=== PATIENT | male | born 1945 | race Caucasian/White ===

== ENCOUNTER → 2019-01-28 | Outpatient (CLI) | payer MEDICARE, OTHER ==
[2019-01-28 15:16] LABS: PROTHROMBIN TIME 24.4 SECONDS (9.7-12.8)
== END ==
LOC: COL.LAB 14:13
DX: I48.0 Paroxysmal atrial fibrillation (principal); Z79.01 Long term (current) use of anticoagulants

== ENCOUNTER 2021-08-01 18:18 | Emergency (ER) | payer MEDICARE, OTHER ==
[~2021-08-01] VITALS: Ht 185.4 cm; Wt 122.7 kg
[2021-08-01 19:03] LABS: BASO % 0.6 % (0.0-2.0); EOS # 0.2 K/mm3 (0.0-0.7); EOS % 3.3 % (0.0-4.0); GRAN # 3.6 K/mm3 (1.4-6.5); GRAN % 68.6 % (42.2-75.2); HEMOGLOBIN 13.1 g/dl (13.5-18.0); LYMPH # 0.9 K/mm3 (1.2-3.4); LYMPH % 16.7 % (20.0-51.0); MEAN CELL VOLUME 83 fl (80.0-100.0); MEAN CORPUSCULAR HEMOGLOBIN 27 pg (27-31); MEAN CORPUSCULAR HGB CONC 33 g/dl (33.0-37.0); MEAN PLATELET VOLUME 9.6 fl (7.4-10.4); MONO # 0.6 K/mm3 (0.1-0.6); MONO % 10.6 % (1.7-9.3); PLATELET COUNT 134 K/mm3 (130-400); RED BLOOD COUNT 4.83 M/mm3 (4.20-5.60)
[2021-08-01] MEDS ORDERED: NORVASC2.5 MG PO (19:05)
[2021-08-01] MEDS ORDERED: ELIQUIS 5MG PO (19:05)
[2021-08-01] MEDS ORDERED: TENORMIN 2525 MG/TAB PO (19:06)
[2021-08-01] MEDS ORDERED: ASPIRIN 81M81 MG/TA2 PO (19:06)
[2021-08-01] MEDS ORDERED: PRESERVISION1 SGL PO (19:06)
[2021-08-01] MEDS ORDERED: EPA FISH OIL1 SGL PO (19:07)
[2021-08-01] MEDS ORDERED: HCTZ 25MG TAB25 MG PO (19:07)
[2021-08-01] MEDS ORDERED: GLUCOPHAGE500 MG/TAB PO (19:07)
[2021-08-01 19:29] LABS: ALBUMIN 3.8 gm/dL (3.4-4.8); BILIRUBIN,TOTAL 0.9 mg/dL (0.2-1.2); C-REACTIVE PROTEIN 0.52 mg/dL (0.00-0.50); CALCIUM 9.7 mg/dL (8.4-10.2); CREATININE, serum 0.87 mg/dL (0.72-1.25); POTASSIUM 3.8 mmol/L (3.5-4.5)
[2021-08-01 20:46] LABS: COLLECTION METHOD CLEAN CATCH
[2021-08-01 20:51] LABS: PH 7 (5-8); SQUAMOUS EPITHELIAL None Seen /hpf (0-10); URINE APPEARANCE Clear (CLEAR/HAZY); URINE BACTERIA None Seen /hpf (NONE SEEN); URINE BILIRUBIN Negative (NEGATIVE); URINE BLOOD Negative (NEGATIVE); URINE COLOR Yellow (YELLOW); URINE GLUCOSE Negative (NEGATIVE); URINE KETONE Negative (NEGATIVE); URINE LEUKOCYTE ESTERASE Negative (NEGATIVE); URINE NITRATE Negative (NEGATIVE); URINE PROTEIN(semi-quant) Negative (NEGATIVE); URINE RBC None Seen /hpf (0-2); URINE UROBILINOGEN Negative (NEGATIVE)
[2021-08-01 22:15] VITALS: TEMP 97.9
[2021-08-02 00:25] VITALS: BP 138/84; PULSE 84
== END 2021-08-02 00:48 | disposition short-term general hospital (02) ==
LOC: COL.ER 18:18
PROVIDERS: Nurse Practitioner
DX: K56.600 Partial intestinal obstruction, unspecified as to cause (principal); G89.18 Other acute postprocedural pain; R74.02 Elevation of levels of lactic acid dehydrogenase [LDH]; Z87.891 Personal history of nicotine dependence; Z91.040 Latex allergy status
CPT/HCPCS: J1170; J2405; J2543; J7120; Q9967

== ENCOUNTER → 2022-04-12 | Outpatient (CLI) | payer MEDICARE, OTHER ==
[~2022-04-12] MED LIST: ASPIRIN 81M81 MG/TA2 PO; ELIQUIS 5MG PO; EPA FISH OIL1 SGL PO; GLUCOPHAGE500 MG/TAB PO; HCTZ 25MG TAB25 MG PO; NORVASC2.5 MG PO; PRESERVISION1 SGL PO; TENORMIN 2525 MG/TAB PO
== END ==
LOC: COL.VAS 12:54
DX: I48.91 Unspecified atrial fibrillation (principal); I51.7 Cardiomegaly

== ENCOUNTER 2023-10-24 22:19 | Inpatient (IN) | payer MEDICARE, OTHER ==
[~2023-10-24] VITALS: Ht 185.4 cm; Wt 122.7 kg
[~2023-10-24 22:19] MED LIST changes: +ASPIRIN E.C. 8181 MG PO; +B-121000 MCG PO; +GLUCOPHAGE XR500 M1 PO; +LIPITOR 40MG TA40 MG PO; +NEURONTIN100 MG/CAP PO
[2023-10-24] MEDS ORDERED: NS 500 ML IV ONE (22:45)
[2023-10-24] MEDS ORDERED: Ondansetron 4 MG/2 ML VIAL IV ONE (22:45)
[2023-10-24] MEDS ORDERED: HYDROmorphone 0.5 MG/0.5 ML SYRINGE IV ONE (22:45)
[2023-10-24 22:54] LABS: BASO # 0.1 K/mm3 (0.0-0.2); BASO % 0.8 % (0.0-2.0); EOS # 0.2 K/mm3 (0.0-0.7); EOS % 2.3 % (0.0-4.0); GRAN # 5.9 K/mm3 (1.4-6.5); GRAN % 64.2 % (42.2-75.2); HEMOGLOBIN 13.4 g/dl (13.5-18.0); LYMPH # 2.3 K/mm3 (1.2-3.4); LYMPH % 24.8 % (20.0-51.0); MEAN CELL VOLUME 81 fl (80.0-100.0); MEAN CORPUSCULAR HEMOGLOBIN 26 pg (27-31); MEAN CORPUSCULAR HGB CONC 32 g/dl (33.0-37.0); MONO # 0.7 K/mm3 (0.1-0.6); MONO % 7.6 % (1.7-9.3); PLATELET COUNT 199 K/mm3 (130-400); RED BLOOD COUNT 5.19 M/mm3 (4.20-5.60); REDCELL DISTRIBUTION WIDTH-CV 15.9 % (11.5-14.5)
[2023-10-24 23:04] LABS: ACETONE,SERUM NEGATIVE
[2023-10-24 23:05] LABS: INR 1.1 (0.8-3.0); PROTHROMBIN TIME 11.4 SECONDS (9.7-12.8)
[2023-10-24 23:08] LABS: PARTIAL THROMBOPLASTIN TIME 29.6 SECONDS (26.0-37.0)
[2023-10-24 23:12] LABS: ALANINE AMINOTRANSFERASE 14 U/L (0-55); ALBUMIN 4.1 g/dL (3.4-4.8); ALKALINE PHOSPHATASE 71 U/L (40-150); ANION GAP 18 mmol/L (7-16); AST,SGOT 26 U/L (5-34); BLOOD UREA NITROGEN 20 mg/dL (8-26); CALCIUM 9.9 mg/dL (8.4-10.2); CHLORIDE 107 mEq/L (98-107); CREATININE, serum 1.05 mg/dL (0.72-1.25); GLUCOSE 168 mg/dL (70-99); LIPASE 26 U/L (8-78); POTASSIUM 3.4 mEq/L (3.5-4.5); SODIUM 144 mEq/L (136-145); TOTAL PROTEIN 7.5 g/dl (6.2-8.1)
[2023-10-24] MEDS ORDERED: LIPITOR 80MG80 MG PO (23:44)
[2023-10-24] MEDS ORDERED: NEURONTIN300 MG/CAP PO (23:44)
[2023-10-25] VITALS (14 sets, daily range): BP systolic 108–146; BP diastolic 59–92; PULSE 52–82; TEMP 97.4–98.1
[2023-10-25] MEDS ORDERED: JARDIANCE25 PO (00:15)
[2023-10-25] MEDS ORDERED: NS 1,000 ML IV SCH (00:45)
[2023-10-25] MEDS ORDERED: HYDROmorphone 0.5 MG/0.5 ML SYRINGE IV PRN (00:45)
[2023-10-25] MEDS ORDERED: Ondansetron 4 MG/2 ML VIAL IV PRN (00:45)
[2023-10-25] MEDS ORDERED: Metoprolol Tartrate 5 MG/5 ML VIAL IV SCH (00:45)
[2023-10-25] MEDS ORDERED: Dextrose (Glucose) 15 GM (4 x 3.75 GM) Chewable TABLET PACK PO PRN (01:15)
[2023-10-25] MEDS ORDERED: Glucagon 1 MG VIAL IM PRN (01:15)
[2023-10-25] MEDS ORDERED: Potassium Chloride 100 ML IV SCH ×2 (01:15→07:30)
[2023-10-25] MEDS ORDERED: *Potassium Replacement Protocol MC SCH (01:15)
[2023-10-25] MEDS ORDERED: Dextrose 50% Water 25 GM/50 ML SYRINGE IV PRN (01:15)
--- NOTE | 2023-10-25 01:36 | NUR ---
PATIENT ADMITTED TO ROOM 357 BROUGHT UP BY LUISA ED-RN. PATIENT VS ARE:BP 146/92, PULSE 71, 96% ON RA, 97.9 TEMP, 18RR. C/O 3/10 ABDOMINAL PAIN. AXO X3, NO EMESIS OR LOOSE STOOLS NOTED. CALL PLACED TO HOSPITALIST INQUIRING ABOUT TELE. NO TELE ORDERS PLACED. PATIENT ORIENTED TO ROOM.
[2023-10-25 03:20] LABS: COLLECTION METHOD CLEAN CATCH
[2023-10-25 03:47] LABS: URINE APPEARANCE CLEAR (CLEAR/HAZY); URINE BLOOD NEGATIVE (NEGATIVE); URINE COLOR YELLOW (YELLOW); URINE GLUCOSE 2+ (NEGATIVE); URINE KETONE 1+ (NEGATIVE); URINE NITRATE NEGATIVE (NEGATIVE); URINE PROTEIN(semi-quant) NEGATIVE (NEGATIVE); URINE UROBILINOGEN 0.2 E.U/dL (0.2-1.0)
--- NOTE | 2023-10-25 03:50 | NUR ---
PATIENT ADMITTED TO ROOM 307 BROUGHT UP BY ER-RN. VS ARE 115/65 BP, 91% RA, TEMP 99.8, HR 122, RR 18 AND AXO X4. NS STILL INFUSING IN RT AC- BOLUS. PATIENT ORIENTED TO ROOM. MEWS SCOR CURRENTLY 3. CHARGE NURSE NOTIFIED AND EVANGELIDIS -UROLOGIST DRY CELL TESTER- TO ADMINISTER 1000 MG TYLENOL PO AND CONTINUE VITAL SIGNS VIGILANCE GIVEN.
--- NOTE | 2023-10-25 04:07 | NUR ---
PATIENT NOT TOLERATING K+ IV REPLACEMENT. STATES, "IT RODRIGUEZ REAL BAD." WITH ASSISSTANCE OF [place]. DRIP RATE SLOWED TO 50ML/HR. SO FAR, PATIENT TOLERATING WELL. CALL PLACED TO HOSPITALIST.
[2023-10-25] MEDS ORDERED: Insulin Lispro (HumaLOG) SQ SCH (06:00)
[2023-10-25] MEDS ORDERED: Heparin/D5W 250 ML IV SCH (09:00)
[2023-10-25] MEDS ORDERED: Heparin 1,000 UNITS/0.2 ML Re-Bolus PRN IV (09:00)
[2023-10-25] MEDS ORDERED: Pantoprazole 40 MG in NS 10 ML IV SCH (09:00)
--- NOTE | 2023-10-25 10:09 | NUR ---
Pending court monitor to start Hep gtt.
--- NOTE | 2023-10-25 16:58 | NUR ---
floorworker lasting met with patient to discuss discharge planning. Patient lives near [place] by himself. Rena (daughter) P# [phone] and Ej (grandson) P# [phone] are listed as contacts. PCP is Dr. Ball, [facility] is [facility] [address] otherwise it is [facility]. No issues affording medications at this time. Medicare A and B and for Life. No DPOA-HC, marriage and family social worker provided a DPOA-HC to review in case patient wanted to complete during the hospital stay. DME is [facility] CPAP. Patient reports to be indpendent with ADLS. Patient reports to have a vehicle for transportation to appointments. Patient would like to return home at time of discharge. SW left a voicemail for Rena, patient's daughter, to discuss discharge plan. Discharge plan: Home
--- NOTE | 2023-10-25 18:23 | NUR ---
Hep gtt high 145.7, stopped 1 hr and to be reduced 200 units.
--- NOTE | 2023-10-25 23:33 | NUR ---
PATIENT RESTING IN BED WITH EYES CLOSED. EASILY ROUSED. DENIES PAIN. STATES HE HAS BEEN PASSING GAS AND WOULD LIKE TO ADVANCE HIS DIET PAST CLEAR LIQUIDS. CALL LIGHT WITHIN REACH. BED IS LOCKED AND IN LOW POSITION
[2023-10-26] VITALS (7 sets, daily range): BP systolic 100–134; BP diastolic 65–87; PULSE 54–67; TEMP 97.5–97.7
--- NOTE | 2023-10-26 02:18 | NUR ---
PATIENT'S PTT RESULT FROM 0130 CHECK IS 204.3, PER PROTOCOL THIS RN PLACED HEPARIN DRIP ON STANDBY AND WILL RECHECK AT 0415.
[2023-10-26 04:16] LABS: BASO % 0.9 % (0.0-2.0); EOS # 0.3 K/mm3 (0.0-0.7); EOS % 6.6 % (0.0-4.0); GRAN # 2.6 K/mm3 (1.4-6.5); GRAN % 56.1 % (42.2-75.2); HEMATOCRIT 37.4 % (42.0-52.0); HEMOGLOBIN 11.9 g/dl (13.5-18.0); LYMPH # 1.2 K/mm3 (1.2-3.4); LYMPH % 25.9 % (20.0-51.0); MEAN CELL VOLUME 83 fl (80.0-100.0); MEAN CORPUSCULAR HEMOGLOBIN 26 pg (27-31); MEAN CORPUSCULAR HGB CONC 32 g/dl (33.0-37.0); MEAN PLATELET VOLUME 9.8 fl (7.4-10.4); MONO # 0.5 K/mm3 (0.1-0.6); MONO % 10.3 % (1.7-9.3); PLATELET COUNT 138 K/mm3 (130-400); RED BLOOD COUNT 4.51 M/mm3 (4.20-5.60); REDCELL DISTRIBUTION WIDTH-CV 16.1 % (11.5-14.5)
[2023-10-26 04:31] LABS: CALCIUM 8.1 mg/dL (8.4-10.2); CREATININE, serum 0.76 mg/dL (0.72-1.25); POTASSIUM 3.7 mEq/L (3.5-4.5)
[2023-10-26] MEDS ORDERED: Potassium Bicarbonate/Citrate 20 MEQ Effervescent TAB PO SCH (09:30)
--- NOTE | 2023-10-26 10:00 | NUR ---
Pt. sitting up in chair. Pt. is A&OX3, assessment complete. INT to lt. forearm and rt. ac. Heparin gtt and fluids stopped at this time per orders. Pt. denies pain or other needs, call light within reach.
--- NOTE | 2023-10-26 10:02 | NUR ---
Initial visit; Patient states he is in a lot of pain and was receptive to Customer Service Driver offering prayer for cessation of pain and rapid and thorough healing. Customer Service Driver wished patient well following prayer and God's blessings.
[2023-10-26] MEDS ORDERED: Apixaban 5 MG TABLET PO SCH (10:30)
[2023-10-26] MEDS ORDERED: Atenolol 25 MG TAB PO SCH (10:30)
--- NOTE | 2023-10-26 15:30 | NUR ---
Pt. ready for discharge. INT's discontinued from lt. forearm and rt. ac. Discharge paperwork reviewed and given to the pt. Pt. voices understanding. Pt. dressed and escorted out by wheelchair.
[2023-10-26] MEDS ORDERED: Atorvastatin 40 MG TAB PO SCH (21:00)
== END 2023-10-26 15:30 | disposition home or self-care (01) | DRG 389 ==
LOC: COL.ER 22:19 → MEDICAL 23:41
PROVIDERS: Emergency Medicine; Nurse Practitioner Family; ADMIT Internal Medicine
DX: K56.600 Partial intestinal obstruction, unspecified as to cause (principal); E87.20 Acidosis, unspecified; I48.91 Unspecified atrial fibrillation; I10 Essential (primary) hypertension; E78.5 Hyperlipidemia, unspecified; I25.10 Atherosclerotic heart disease of native coronary artery without angina pectoris; E11.40 Type 2 diabetes mellitus with diabetic neuropathy, unspecified; G47.33 Obstructive sleep apnea (adult) (pediatric); E87.6 Hypokalemia; Z79.01 Long term (current) use of anticoagulants; Z90.49 Acquired absence of other specified parts of digestive tract; Z85.038 Personal history of other malignant neoplasm of large intestine; Z88.6 Allergy status to analgesic agent; Z91.040 Latex allergy status; Z79.82 Long term (current) use of aspirin; Z95.1 Presence of aortocoronary bypass graft; Z79.899 Other long term (current) drug therapy; Z87.891 Personal history of nicotine dependence; Z79.84 Long term (current) use of oral hypoglycemic drugs; Z86.718 Personal history of other venous thrombosis and embolism; Z99.89 Dependence on other enabling machines and devices; Z23 Encounter for immunization
CPT/HCPCS: J1170; J1644; J2405; J2470; J3480; J7030; J7040